=== PATIENT | male | born 1960 | race Hispanic/Latino ===

== ENCOUNTER 2018-08-10 20:10 | Emergency (ER) | payer OTHER ==
--- NOTE | 2018-08-10 21:30 | CT ---
CT BRAIN NONCONTRAST: DATE: 08/10/2018 HISTORY: 58-year-old male status post acute head trauma FINDINGS: There is no evidence of acute intra-axial or extra-axial hemorrhage. There is no midline shift or any other mass effect. There is no extra-axial fluid collection. There is no evidence of obstructive hydrocephalus. Calvarium is intact. There is right supraorbital soft tissue swelling. No evidence of post septal, intraorbital hematoma or gas. IMPRESSION: 1. No acute intracranial findings. 2. Acute, traumatic, right supraorbital superficial soft tissue contusion.
--- NOTE | 2018-08-10 21:37 | CT ---
Noncontrast enhanced CT images of mandible maxilla. HISTORY: Fall with trauma. Axial images are obtained with coronal and sagittal reconstructions. Images demonstrate a right periorbital and frontal scalp hematoma. The paranasal sinuses are well aerated. No evidence of nasal bone fractures or facial fracture seen. Mandible and maxilla are intact. IMPRESSION: No evidence of facial fractures.
== END 2018-08-10 23:15 ==
LOC: ERS 20:10
DX: S00.83XA Contusion of other part of head, initial encounter (principal); I10 Essential (primary) hypertension; Z79.899 Other long term (current) drug therapy; W19.XXXA Unspecified fall, initial encounter
CPT/HCPCS: 70450; 70486